=== PATIENT | male | born 1995 | race Caucasian/White ===

== ENCOUNTER → 2019-11-14 | Outpatient (CLI) | payer OTHER ==
[~2019-11-14] MED LIST: ALOE TP; AMOXICILLIN500 MG PO; ANAPROX DS550 MG PO; AUGMENTIN ES-6050 ML PO; CLARITIN10 MG PO; CLARITIN5 MG/5 ML PO; CLONIDINE0.1 MG PO; CONCERTA; CONCERTA18 MG PO; CORTISPORIN 1%-10 M1 OT; KLONOPIN0.5 MG PO; MEDROL DOSEPAK4 MG PO; MIRALAX POWDER17 G1 PO; MOTRIN400 MG PO; MOTRIN800 MG PO; Motrin,Rufen800 MG PO; NAPROSYN500 MG PO; NKHM; PREDNICOT20 MG PO; WYMOX500 MG PO; ZITHROMAX Z PA250 MG PO
[2019-11-14 13:06] LABS: HEMATOCRIT 48.6 % (42.0-52.0); MEAN CELL VOLUME 85.3 fl (80.0-94.0); MEAN CORPUSCULAR HGB 27.7 pg (27.0-31.0); MEAN CORPUSCULAR HGB CONC 32.5 g/dl (33.0-37.0); MEAN PLATELET VOLUME 10.5 fl (9.6-12.3); RED BLOOD COUNT 5.7 10*6/uL (4.50-5.90)
[2019-11-14 13:38] LABS: ALKALINE PHOSPHATASE 81 U/L (45-117); BILIRUBIN, DIRECT 0.1 mg/dL (0.0-0.2); BUN 16 mg/dl (7-24); CHLORIDE 106 mmol/L (98-107); CHOLESTEROL 137 mg/dL (<200); CREATININE 1.02 mg/dL (0.70-1.30); FREE T4 1.06 ng/dl (0.76-1.46); HDL CHOLESTEROL 41 mg/dl (40-60); LDL CHOLESTEROL 84 mg/dL (9-159); POTASSIUM 4.1 mmol/L (3.5-5.1); SGOT/AST 19 IU/L (3-35); SGPT/ALT 38 U/L (12-78); SODIUM 136 mmol/L (136-145); T3 UPTAKE 32 % (31-39); TOTAL PROTEIN 8.1 gm/dL (6.4-8.2); TRIGLYCERIDES 59 mg/dl (<150); VLDL CHOLESTEROL 12 mg/dL (6-40)
[2019-11-14 18:03] LABS: URINE AMPHETAMINES < 1000 (1000ng/ml); URINE BARBITURATES < 200 (200ng/ml); URINE BENZODIAZEPINES < 200 (200ng/ml); URINE CANNABINOIDS (THC) < 50 (50ng/ml); URINE COCAINE < 300 (300ng/ml); URINE METHADONE < 300 (300ng/ml); URINE OPIATES < 300 (300ng/ml)
[2019-11-14 18:04] LABS: URINE PHENCYCLIDINE < 25 (25ng/ml)
== END | disposition home or self-care (01) ==
LOC: LAB 12:19
PROVIDERS: ATTEND Nurse Practitioner Family
DX: Z79.899 Other long term (current) drug therapy (principal)

== ENCOUNTER 2019-12-07 15:58 | Emergency (ER) | payer OTHER ==
[~2019-12-07] VITALS: Ht 175.2 cm; Wt 99.8 kg
[2019-12-07 16:02] VITALS: BP 138/74
[2019-12-07] MEDS ORDERED: CYCLOBENZAPRINE10 MG PO (17:03)
[2019-12-07] MEDS ORDERED: IBU800 MG PO (17:03)
== END 2019-12-07 17:44 | disposition home or self-care (01) ==
LOC: ED 15:58
DX: M54.5 Low back pain (principal); F17.200 Nicotine dependence, unspecified, uncomplicated

== ENCOUNTER 2020-08-29 19:54 | Emergency (ER) | payer OTHER ==
[~2020-08-29] VITALS: Wt 108.9 kg
[~2020-08-29 19:54] MED LIST changes: +CYCLOBENZAPRINE10 MG PO; +IBU800 MG PO
[2020-08-29 20:04] VITALS: BP 130/88
== END 2020-08-29 20:18 | disposition home or self-care (01) ==
LOC: ED 19:54
DX: L23.7 Allergic contact dermatitis due to plants, except food (principal); Z79.899 Other long term (current) drug therapy

== ENCOUNTER 2020-10-17 12:35 | Emergency (ER) | payer OTHER ==
[2020-10-17 13:03] LABS: BASO # 0.1 10*3/uL (0.0-0.1); BASO % 0.6 % (0.0-1.0); EOS # 0.1 10*3/uL (0.0-0.4); EOS % 1.2 % (1.0-4.0); LYMPH # 1.7 10*3/uL (1.3-4.4); LYMPH % 16.7 % (27.0-41.0); MEAN CORPUSCULAR HGB 27.6 pg (27.0-31.0); MEAN CORPUSCULAR HGB CONC 32.9 g/dl (33.0-37.0); MEAN PLATELET VOLUME 9.8 fl (9.6-12.3); MONO % 10.2 % (3.0-9.0); NEUT # 7.1 10*3/uL (2.3-7.9); NEUT % 70.9 % (47.0-73.0); PLATELET COUNT AUTOMATED 314 10*3/uL (130-400); RED BLOOD COUNT 5.36 10*6/uL (4.50-5.90); RED CELL DISTRI WIDTH 13.3 % (0-14.5)
[2020-10-17 13:26] LABS: BILIRUBIN Negative (Negative); BLOOD Negative (Negative); CLARITY Clear (Clear); COLOR Yellow (Yellow); GLUCOSE Negative (Negative); KETONE Negative (Negative); LEUKO ESTERASE Negative (Negative); NITRITE Negative (Negative); PH 7.5 (4.5-8.0); SPECIFIC GRAVITY 1.015 (1.001-1.030)
[2020-10-17 13:30] LABS: ALBUMIN 3.7 gm/dl (3.1-4.5); ALKALINE PHOSPHATASE 101 U/L (45-117); BUN 9 mg/dl (7-24); CHLORIDE 104 mmol/L (98-107); CREATININE 0.93 mg/dL (0.70-1.30); POTASSIUM 4.1 mmol/L (3.5-5.1); SGOT/AST 19 IU/L (3-35); SGPT/ALT 30 U/L (12-78); SODIUM 137 mmol/L (136-145); TOTAL PROTEIN 7.1 gm/dL (6.4-8.2)
[2020-10-17 13:33] LABS: ETHYL ALCOHOL < 3.0 mg/dl (<3)
[2020-10-17 13:34] LABS: URINE AMPHETAMINES < 1000 (1000ng/ml); URINE BARBITURATES < 200 (200ng/ml); URINE BENZODIAZEPINES < 200 (200ng/ml); URINE CANNABINOIDS (THC) < 50 (50ng/ml); URINE COCAINE > 300 (300ng/ml); URINE METHADONE < 300 (300ng/ml); URINE OPIATES < 300 (300ng/ml); URINE PHENCYCLIDINE < 25 (25ng/ml)
[2020-10-17 13:39] LABS: BACTERIA 1+
[2020-10-17 14:49] LABS: CPK 316 U/L (39-308)
[2020-10-17 14:56] LABS: TROPONIN I < 0.015 ng/ml (<0.045)
[2020-10-18 07:33] VITALS: BP 106/52
== END 2020-10-18 14:45 ==
LOC: ED 12:35
PROVIDERS: Emergency Medicine
DX: F43.21 Adjustment disorder with depressed mood (principal); Z20.822 Contact with and (suspected) exposure to COVID-19; F14.90 Cocaine use, unspecified, uncomplicated; R45.851 Suicidal ideations; Z79.899 Other long term (current) drug therapy; Z98.890 Other specified postprocedural states

== ENCOUNTER 2021-01-09 17:22 | Emergency (ER) | payer OTHER ==
[~2021-01-09] VITALS: Ht 182.8 cm; Wt 87.5 kg
[2021-01-09 18:05] LABS: BASO # 0.1 10*3/uL (0.0-0.1); BASO % 0.8 % (0.0-1.0); EOS # 0.1 10*3/uL (0.0-0.4); EOS % 0.7 % (1.0-4.0); LYMPH # 1.9 10*3/uL (1.3-4.4); LYMPH % 21.1 % (27.0-41.0); MEAN CELL VOLUME 83.6 fl (80.0-94.0); MEAN CORPUSCULAR HGB 27.6 pg (27.0-31.0); MEAN PLATELET VOLUME 9.3 fl (9.6-12.3); MONO # 0.5 10*3/uL (0.1-1.0); MONO % 5.7 % (3.0-9.0); NEUT # 6.5 10*3/uL (2.3-7.9); NEUT % 71.4 % (47.0-73.0); PLATELET COUNT AUTOMATED 371 10*3/uL (130-400); RED CELL DISTRI WIDTH 13.5 % (0-14.5); WHITE BLOOD COUNT 9.1 10*3/uL (4.8-10.8)
[2021-01-09 18:21] LABS: ALBUMIN 3.7 gm/dl (3.1-4.5); ALKALINE PHOSPHATASE 88 U/L (45-117); BUN 14 mg/dl (7-24); CHLORIDE 104 mmol/L (98-107); CREATININE 0.94 mg/dL (0.70-1.30); SGOT/AST 21 IU/L (3-35); SGPT/ALT 38 U/L (12-78); SODIUM 136 mmol/L (136-145); TOTAL PROTEIN 7.7 gm/dL (6.4-8.2)
[2021-01-09 19:37] LABS: BILIRUBIN Negative (Negative); BLOOD Negative (Negative); CLARITY Clear (Clear); COLOR Yellow (Yellow); GLUCOSE Negative (Negative); KETONE Negative (Negative); LEUKO ESTERASE Negative (Negative); NITRITE Negative (Negative); PH 6.5 (4.5-8.0)
[2021-01-09 19:44] LABS: URINE AMPHETAMINES < 1000 (1000ng/ml); URINE BARBITURATES < 200 (200ng/ml); URINE BENZODIAZEPINES < 200 (200ng/ml); URINE CANNABINOIDS (THC) < 50 (50ng/ml); URINE COCAINE < 300 (300ng/ml); URINE METHADONE < 300 (300ng/ml); URINE OPIATES < 300 (300ng/ml)
[2021-01-09 19:48] LABS: URINE PHENCYCLIDINE < 25 (25ng/ml)
[2021-01-09 19:55] LABS: BACTERIA TRACE; EPITHELIAL CELLS 0-2; RBC 0-2 rbc/hpf (0-2); WBC 0-2 wbc/hpf (0-5)
[2021-01-10 08:38] VITALS: BP 115/63
== END 2021-01-10 14:18 ==
LOC: ED 17:22
PROVIDERS: Nurse Practitioner Family
DX: F43.21 Adjustment disorder with depressed mood (principal); Z20.822 Contact with and (suspected) exposure to COVID-19

== ENCOUNTER 2021-05-21 15:54 | Emergency (ER) | payer OTHER ==
[2021-05-21 15:58] VITALS: BP 125/72
[2021-05-21] MEDS ORDERED: NAPROXEN250 MG PO (16:06)
[2021-05-21] MEDS ORDERED: TYLENOL325 M1 PO (16:06)
[2021-05-21] MEDS ORDERED: PENICILLIN-VK500 MG PO (16:06)
== END 2021-05-21 16:09 | disposition home or self-care (01) ==
LOC: ED 15:54
DX: K08.89 Other specified disorders of teeth and supporting structures (principal)

== ENCOUNTER 2022-02-16 14:04 | Emergency (ER) | payer OTHER ==
[~2022-02-16 14:04] MED LIST changes: +NAPROXEN250 MG PO; +PENICILLIN-VK500 MG PO; +TYLENOL325 M1 PO
[2022-02-16 14:42] VITALS: BP 127/70
== END 2022-02-16 17:33 | disposition left against medical advice (07) ==
LOC: ED 14:04
DX: Z53.21 Procedure and treatment not carried out due to patient leaving prior to being seen by health care provider (principal)

== ENCOUNTER → 2022-07-13 | Emergency (ER) | payer OTHER ==
[~2022-07-13] VITALS: Wt 120.2 kg
[2022-07-13 17:33] VITALS: BP 135/51
== END ==
LOC: ED 16:40
DX: S51.811A Laceration without foreign body of right forearm, initial encounter (principal); F90.9 Attention-deficit hyperactivity disorder, unspecified type; F31.9 Bipolar disorder, unspecified; Z98.890 Other specified postprocedural states; W20.8XXA Other cause of strike by thrown, projected or falling object, initial encounter; Y93.89 Activity, other specified; Y92.89 Other specified places as the place of occurrence of the external cause; Y99.8 Other external cause status

== ENCOUNTER → 2022-11-29 | Outpatient (CLI) | payer OTHER | END | disposition home or self-care (01) | LOC: RAD 13:44 | PROVIDERS: ATTEND Nurse Practitioner Family | DX: M43.06 Spondylolysis, lumbar region (principal); M54.6 Pain in thoracic spine; E66.9 Obesity, unspecified; Z83.3 Family history of diabetes mellitus; Z82.49 Family history of ischemic heart disease and other diseases of the circulatory system ==